=== PATIENT | male | born 1990 | race Two or more races ===

== ENCOUNTER 2024-10-03 11:36 | Emergency (ER) | payer OTHER ==
[~2024-10-03] VITALS: Ht 175.3 cm; Wt 95.3 kg
[2024-10-03 12:30] VITALS: BP 136/82; O2SAT 98
== END 2024-10-03 12:32 | disposition left against medical advice (07) ==
LOC: ER 11:36
DX: S61.412A Laceration without foreign body of left hand, initial encounter (principal); Z53.21 Procedure and treatment not carried out due to patient leaving prior to being seen by health care provider; X58.XXXA Exposure to other specified factors, initial encounter; Y93.89 Activity, other specified; Y92.89 Other specified places as the place of occurrence of the external cause; Y99.8 Other external cause status
CPT/HCPCS: A4606; A4663